=== PATIENT | female | born 2000 | race Caucasian/White ===

== ENCOUNTER 2018-06-21 09:51 | Emergency (ER) | payer OTHER ==
[2018-06-21] MEDS: ONDANSETRON 4MG/2ML VIAL (J2405) IV (10:59)
[2018-06-21] MEDS: NS 1,000 ML IV (10:59)
[2018-06-21 11:07] LABS: KETONE, URINE AUTO RFX NEGATIVE (NEGATIVE); NITRITE, URINE AUTO RFX NEGATIVE (NEGATIVE); RBC, URINE AUTO RFX 0 /HPF (0-3); SPECIFIC GRAVITY UR AUTO RFX 1.012 (1.002-1.035); SQUAM EPITHELIAL CELL UR AURFX 5 /HPF (0-6); WBC, URINE AUTO RFX 1 /HPF (0-3)
[2018-06-21 11:11] LABS: BASO % 0.2 % (0.0-1.0); EOS # 0.2 10^3/uL (0.0-0.50); EOS % 1.7 % (0.0-3.0); HEMATOCRIT 46.7 % (36.0-47.0); HEMOGLOBIN 16.7 g/dl (12.0-15.5); IMMATURE GRANULOCYTE % 0.4 % (0-3.0); LYMPH # 1.8 10^3/uL (1.5-6.5); LYMPH % 18.4 % (24.0-44.0); MEAN CORPUSCULAR HEMOGLOBIN 30.9 pg (27.0-33.0); MEAN CORPUSCULAR HGB CONC 35.8 g/dl (32.0-36.5); MEAN CORPUSCULAR VOLUME 86.3 fl (80.0-96.0); MONO # 1.1 10^3/uL (0.0-0.8); MONO % 11.1 % (0.0-5.0); NEUTROPHILS # 6.6 10^3/uL (1.8-7.7); NEUTROPHILS % 68.2 % (36.0-66.0); PLATELET COUNT, AUTOMATED 364 10^3/uL (150-450); RED BLOOD COUNT 5.41 10^6/uL (4.00-5.40); RED CELL DISTRIBUTION WIDTH 12.5 % (11.5-14.5); WHITE BLOOD COUNT 9.6 10^3/uL (4.0-10.0)
[2018-06-21 11:15] LABS: LEUKOCYTE ESTERASE UR AUTO RFX TRACE (NEGATIVE)
[2018-06-21 11:31] LABS: ALBUMIN 4.4 GM/DL (3.2-5.2); ALBUMIN/GLOBULIN RATIO 1.26 (1.00-1.93); ALKALINE PHOSPHATASE 78 U/L (45-117); ALT/SGPT 48 U/L (12-78); AMYLASE 26 U/L (25-115); ANION GAP 9 MEQ/L (8-16); AST/SGOT 27 U/L (7-37); BILIRUBIN,DIRECT 0.2 MG/DL (0.0-0.2); BILIRUBIN,TOTAL 0.9 MG/DL (0.2-1.0); BLOOD UREA NITROGEN 6 MG/DL (7-18); CALCIUM LEVEL 9.4 MG/DL (8.5-10.1); CARBON DIOXIDE LEVEL 25 MEQ/L (21-32); CHLORIDE LEVEL 106 MEQ/L (98-107); GLUCOSE, FASTING 100 MG/DL (70-100); LIPASE 56 U/L (73-393); POTASSIUM SERUM 3.8 MEQ/L (3.5-5.1); SODIUM LEVEL 140 MEQ/L (136-145); TOTAL PROTEIN 7.9 GM/DL (6.4-8.2)
== END 2018-06-21 12:47 | disposition home or self-care (01) ==
LOC: M ED 09:51
DX: K52.9 Noninfective gastroenteritis and colitis, unspecified (principal)
CPT/HCPCS: J2405

== ENCOUNTER → 2018-06-23 | Outpatient (REF) | payer OTHER | LOC: M LAB REF 08:52 | DX: K52.9 Noninfective gastroenteritis and colitis, unspecified (principal) | CPT/HCPCS: 87507 ==

== ENCOUNTER 2018-09-13 18:46 | Emergency (ER) | payer OTHER ==
[~2018-09-13] VITALS: Ht 162.6 cm; Wt 86.4 kg
[~2018-09-13 18:46] MED LIST: GABA-845 PO; HYDR50TA70 PO; NEXP1IMP SC; SERT50TA PO; ZOFR4TAB14 PO
[2018-09-13] MEDS ORDERED: BUSP5TA (18:53)
[2018-09-13] MEDS ORDERED: SERT25TA88 (18:53)
[2018-09-13] MEDS ORDERED: SERT-138 (18:53)
[2018-09-13] MEDS ORDERED: KETOROLAC TROMETHAMINE 10 MG TAB PO ONE (21:30)
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
[2018-09-13 22:56] VITALS: BP 128/66
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
== END 2018-09-13 23:00 | disposition home or self-care (01) ==
LOC: M ED 18:46
DX: S09.90XA Unspecified injury of head, initial encounter (principal); V43.52XA Car driver injured in collision with other type car in traffic accident, initial encounter; Y92.9 Unspecified place or not applicable; Y93.9 Activity, unspecified; Y99.9 Unspecified external cause status; F41.0 Panic disorder [episodic paroxysmal anxiety]; F32.9 Major depressive disorder, single episode, unspecified; Z79.899 Other long term (current) drug therapy

== ENCOUNTER → 2018-09-29 | Outpatient (CLI) | payer OTHER ==
[~2018-09-29] MED LIST changes: +BUSP5TA; +SERT-138; +SERT25TA88
--- NOTE | 2018-09-29 17:00 | REP ---
Right ankle: Four views. History: Pain. Findings: Four views of the right ankle demonstrate an intact ankle mortise. No fracture or subluxation is seen. There is mild anterolateral soft tissue swelling. Impression: Anterolateral soft-tissue swelling. No fracture noted. Electronically Signed by Jerson Yang MD 09/29/2018 04:51 P
== END ==
LOC: M WUC 09:02
PROVIDERS: ATTEND Physician Assistant
DX: M70.971 Unspecified soft tissue disorder related to use, overuse and pressure, right ankle and foot (principal)

== ENCOUNTER 2019-04-06 20:02 | Emergency (ER) | payer OTHER ==
[~2019-04-06] VITALS: Ht 162.6 cm; Wt 90.9 kg
[~2019-04-06 20:02] MED LIST changes: +SERT-141 PO; +SERT25TA21; -SERT25TA88; -SERT50TA PO
[2019-04-06 20:41] LABS: BASO % 0.4 % (0.0-1.0); EOS # 0.1 10^3/uL (0.0-0.5); EOS % 0.9 % (0.0-3.0); HEMATOCRIT 40.4 % (36.0-47.0); HEMOGLOBIN 14.5 g/dl (12.0-15.5); LYMPH # 3.7 10^3/uL (1.5-5.0); LYMPH % 35.3 % (24.0-44.0); MEAN CORPUSCULAR HEMOGLOBIN 31.4 pg (27.0-33.0); MEAN CORPUSCULAR HGB CONC 35.9 g/dl (32.0-36.5); MEAN CORPUSCULAR VOLUME 87.4 fl (80.0-96.0); MONO # 1.1 10^3/uL (0.0-0.8); NEUTROPHILS # 5.6 10^3/uL (1.5-8.5); NEUTROPHILS % 53.2 % (36.0-66.0); PLATELET COUNT, AUTOMATED 383 10^3/uL (150-450); RED BLOOD COUNT 4.62 10^6/uL (4.00-5.40); WHITE BLOOD COUNT 10.5 10^3/uL (4.0-10.0)
[2019-04-06 21:03] LABS: HCG, SERUM QUALITATIVE NEGATIVE (NEGATIVE)
[2019-04-06 21:07] LABS: ALT/SGPT 24 U/L (12-78); BILIRUBIN,DIRECT 0.2 MG/DL (0.0-0.2); BILIRUBIN,TOTAL 0.6 MG/DL (0.2-1.0); BLOOD UREA NITROGEN 11 MG/DL (7-18); CALCIUM LEVEL 9.2 MG/DL (8.5-10.1); CARBON DIOXIDE LEVEL 26 MEQ/L (21-32); CHLORIDE LEVEL 109 MEQ/L (98-107); CREATININE FOR GFR 0.86 MG/DL (0.55-1.30); GLOMERULAR FILTRATION RATE > 60.0 (>60); GLUCOSE, FASTING 81 MG/DL (70-100); LIPASE 84 U/L (73-393); POTASSIUM SERUM 4.3 MEQ/L (3.5-5.1); SODIUM LEVEL 144 MEQ/L (136-145)
[2019-04-06] MEDS ORDERED: KETOROLAC 30 MG/ML VIAL (J1885) IV ONE (22:30)
[2019-04-06] MEDS ORDERED: ISOVUE-370 76% 100ML VIAL (Q9967) As Ordered ONE (22:31)
[2019-04-06] MEDS ORDERED: ONDANSETRON 4MG/2ML VIAL (J2405) IV ONE (22:45)
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
[2019-04-07 00:19] VITALS: BP 130/69
== END 2019-04-07 00:26 | disposition home or self-care (01) ==
LOC: M ED 20:02
DX: K81.9 Cholecystitis, unspecified (principal); K58.9 Irritable bowel syndrome, unspecified; Z79.899 Other long term (current) drug therapy; Z79.3 Long term (current) use of hormonal contraceptives
CPT/HCPCS: 74177; 80048; 80076; 81001; 81002; 81025; 83690; 84703; 85025; 87210; 96374; 96375; 99284; G0463; J1885; J2405; Q9967

== ENCOUNTER → 2019-07-13 | Outpatient (CLI) | payer OTHER ==
--- NOTE | 2019-07-13 10:25 | REP ---
Hepatobiliary scan and gallbladder ejection fraction: History: Upper abdominal pain. Comparison CT study April 06, 2019. Technique: 6.6 mCi of technetium-99m mebrofenin was injected and sequential anterior images are acquired. 65 minutes after the mebrofenin injection, the patient consumed 8 ounces Ensure and an additional 60 minutes of imaging was acquired. Regions of interest are plotted around the gallbladder. Findings: The initial hepatocellular parenchymal uptake phase is normal and homogeneous. Intra- and extra-hepatic bile ducts are labeled by the 10 -minute image. The gallbladder is first labeled on the 15 -minute image. There is normal washout from the liver parenchyma into the gallbladder and small intestine on subsequent images. The gallbladder ejection fraction is 42 %. Values greater than 35 % are considered normal with this technique. Impression: Normal hepatobiliary scan and normal gallbladder ejection fraction. Electronically Signed by Jerson Yang MD 07/13/2019 10:17 A
== END ==
LOC: M RAD 07:46
PROVIDERS: ATTEND Physician Assistant
DX: R10.10 Upper abdominal pain, unspecified (principal)
CPT/HCPCS: 78227; A9537; J2805

== ENCOUNTER → 2021-01-02 | Outpatient (REF) | payer OTHER ==
[~2021-01-02] MED LIST changes: +GABA-283 PO; -GABA-845 PO
[2021-01-02 13:55] LABS: BASO % 0.5 % (0.0-1.0); EOS # 0.6 10^3/uL (0.0-0.5); EOS % 9.8 % (0.0-3.0); HEMATOCRIT 44.1 % (36.0-47.0); HEMOGLOBIN 15.3 g/dl (12.0-15.5); LYMPH # 2.3 10^3/uL (1.5-5.0); LYMPH % 39.6 % (24.0-44.0); MEAN CORPUSCULAR HEMOGLOBIN 31.5 pg (27.0-33.0); MEAN CORPUSCULAR HGB CONC 34.7 g/dl (32.0-36.5); MEAN CORPUSCULAR VOLUME 90.9 fl (80.0-96.0); MONO # 0.5 10^3/uL (0.0-0.8); MONO % 7.9 % (2.0-8.0); NEUTROPHILS # 2.4 10^3/uL (1.5-8.5); NEUTROPHILS % 41.9 % (36.0-66.0); PLATELET COUNT, AUTOMATED 348 10^3/uL (150-450); RED BLOOD COUNT 4.85 10^6/uL (4.00-5.40); WHITE BLOOD COUNT 5.7 10^3/uL (4.0-10.0)
[2021-01-02 14:29] LABS: FREE T4 0.81 NG/DL (0.76-1.46); PROLACTIN 13.7 NG/ML; THYROID STIMULATING HORMONE 1.79 uIU/ML (0.358-3.740)
[2021-01-03 19:08] LABS: TESTOSTERONE FREE (DIRECT) 7.5 pg/mL (0.0-4.2)
== END ==
LOC: M PLALAB 11:03
PROVIDERS: ATTEND Nurse Practitioner Women's Health
DX: N93.9 Abnormal uterine and vaginal bleeding, unspecified (principal)

== ENCOUNTER 2021-03-06 12:56 | Emergency (ER) | payer OTHER ==
[~2021-03-06] VITALS: Ht 162.6 cm; Wt 98.5 kg
[2021-03-06] MEDS ORDERED: ACETAMINOPHEN 500 MG TAB PO ONE (17:35)
[2021-03-06 17:52] LABS: BASO % 0.2 % (0.0-1.0); EOS # 0.2 10^3/uL (0.0-0.5); EOS % 1.5 % (0.0-3.0); HEMATOCRIT 42.8 % (36.0-47.0); HEMOGLOBIN 15.6 g/dl (12.0-15.5); LYMPH # 2.8 10^3/uL (1.5-5.0); LYMPH % 26.6 % (24.0-44.0); MEAN CORPUSCULAR HEMOGLOBIN 32.6 pg (27.0-33.0); MEAN CORPUSCULAR HGB CONC 36.4 g/dl (32.0-36.5); MEAN CORPUSCULAR VOLUME 89.4 fl (80.0-96.0); MONO # 0.8 10^3/uL (0.0-0.8); MONO % 7.3 % (2.0-8.0); NEUTROPHILS # 6.7 10^3/uL (1.5-8.5); NEUTROPHILS % 64.3 % (36.0-66.0); PLATELET COUNT, AUTOMATED 355 10^3/uL (150-450); RED BLOOD COUNT 4.79 10^6/uL (4.00-5.40); WHITE BLOOD COUNT 10.3 10^3/uL (4.0-10.0)
[2021-03-06 18:17] LABS: BLOOD UREA NITROGEN 11 MG/DL (7-18); CALCIUM LEVEL 9.1 MG/DL (8.5-10.1); CARBON DIOXIDE LEVEL 25 MEQ/L (21-32); CHLORIDE LEVEL 109 MEQ/L (98-107); GLOMERULAR FILTRATION RATE > 60.0 (>60); GLUCOSE, FASTING 92 MG/DL (70-100); HCG, SERUM QUANTITATIVE 30 MIU/ML; POTASSIUM SERUM 4.1 MEQ/L (3.5-5.1); SODIUM LEVEL 140 MEQ/L (136-145)
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
[2021-03-06 19:38] VITALS: BP 149/90
== END 2021-03-06 19:40 | disposition home or self-care (01) ==
LOC: M ED 12:56
DX: N93.9 Abnormal uterine and vaginal bleeding, unspecified (principal); R89.1 Abnormal level of hormones in specimens from other organs, systems and tissues; Z79.899 Other long term (current) drug therapy

== ENCOUNTER → 2021-03-09 | Outpatient (CLI) | payer OTHER | LOC: M LAB 09:17 | PROVIDERS: ATTEND Emergency Medicine | DX: N93.9 Abnormal uterine and vaginal bleeding, unspecified (principal) ==

== ENCOUNTER → 2021-03-11 | Outpatient (CLI) | payer OTHER | LOC: M PLALAB 12:31 | PROVIDERS: ATTEND Obstetrics & Gynecology | DX: O36.80X0 Pregnancy with inconclusive fetal viability, not applicable or unspecified (principal) ==

== ENCOUNTER 2021-03-13 10:28 | Emergency (ER) | payer OTHER ==
[~2021-03-13] VITALS: Ht 162.6 cm; Wt 91.0 kg
[2021-03-13] MEDS ORDERED: BUSP5TA (10:33)
[2021-03-13 11:03] LABS: HEMATOCRIT 43.7 % (36.0-47.0); HEMOGLOBIN 15.9 g/dl (12.0-15.5); MEAN CORPUSCULAR HEMOGLOBIN 32.4 pg (27.0-33.0); MEAN CORPUSCULAR HGB CONC 36.4 g/dl (32.0-36.5); MEAN CORPUSCULAR VOLUME 89.2 fl (80.0-96.0); PLATELET COUNT, AUTOMATED 359 10^3/uL (150-450)
--- NOTE | 2021-03-13 11:39 | REP ---
INDICATION: abnormal quant increase ?ectopic. COMPARISON: Comparison sonography March 06, 2021. TECHNIQUE: Transabdominal and transvaginal scanning is performed FINDINGS: . a normal-sized empty uterus is seen with dimensions of 6.7 x 3.7 x 4.5 cm. The uterus is retroverted. Endometrial echo thickness is 0.5 cm. There is no evidence of intrauterine gestational sac. No free fluid is seen. Normal ovaries are visible bilaterally. Right ovary measures 2.9 x 1.7 x 2.0 cm. It is Doppler flow is normal with resistive index 0.52. Left ovarian dimensions are 2.6 x 2.4 x 1.8 cm. It is Doppler flow is preserved with resistive index measured at 0.48. IMPRESSION: Normal size retroverted empty uterus. No adnexal mass or free fluid seen. Nonspecific sonographic findings. No intrauterine gestation seen. <Electronically signed by Gopi Yang > 03/13/21 [id number]
[2021-03-13 13:33] VITALS: BP 126/60
--- NOTE | 2021-03-14 11:32 | ECGEPIP ---
[facility] - ED Test Date: 2021-03-13 Pat Name: GORDY JUAREZ Department: Room: - Gender: Female [employer] Lead: rosana : 2000 Requested By: Erna Flowers Order Number: [id number] Reading MD: Erna Flowers Measurements Intervals [place] Rate: 65 P: 32 VT: 152 QRS: 47 QRSD: 68 T: 38 QT: 370 QTc: 384 Interpretive Statements Normal sinus rhythm decreased rate 06/21/18 Electronically Signed on 03-14-2021 11:31:59 EDT by Erna Flowers
== END 2021-03-13 13:39 | disposition home or self-care (01) ==
LOC: M ED 10:28
DX: O20.0 Threatened abortion (principal); Z3A.01 Less than 8 weeks gestation of pregnancy; Z79.899 Other long term (current) drug therapy; Z82.49 Family history of ischemic heart disease and other diseases of the circulatory system

== ENCOUNTER → 2021-03-14 | Outpatient (CLI) | payer OTHER | LOC: M LAB 14:11 | PROVIDERS: ATTEND Emergency Medicine | DX: Z36.89 Encounter for other specified antenatal screening (principal) ==